=== PATIENT | male | born 1960 ===

== ENCOUNTER → 2016-09-19 | Outpatient (CLI) | payer OTHER, SELFPAY ==
--- NOTE | 2016-09-19 11:51 | REP ---
SCROTAL ULTRASOUND: Real-time sonographic evaluation of the scrotum and contents performed. The right testicle measures 4.6 x 2.0 x 2.1 cm and the left testicle 4.0 x 2.4 x 3.3 cm. A cyst in the right testicle measures 3 mm in diameter. A cyst in the left testicle measures 5 mm in diameter. No solid mass is seen and there is no evidence of testicular torsion. Blood flow is seen in each testicle with duplex Doppler evaluation, RI of the right testicle is 0.63 and the left testicle 0.69. Cluster of cysts in the left epididymis has a maximum diameter of 7.7 x 4.8 x 8.0 cm. There does not appear to be significant hydrocele. IMPRESSION: Large cluster of cysts in the left epididymis superiorly. Maximum diameter of 8 cm. Tiny cyst in each testicle with no solid testicular mass. No testicular torsion. Signed by Derek Leo MD 09/19/2016 07:58 P
== END ==
LOC: M RAD 10:11
PROVIDERS: ATTEND Physician Assistant
DX: N44.2 Benign cyst of testis (principal); N50.3 Cyst of epididymis; K59.00 Constipation, unspecified